=== PATIENT | female | born 1960 | race Caucasian/White ===

== ENCOUNTER → 2017-10-03 | Outpatient (CLI) | payer OTHER ==
[~2017-10-03] MED LIST: BUPR-79 PO; EFFSR150 PO; MULT-506 PO; ODVTWSS MS; SYN75 PO
--- NOTE | 2017-10-03 12:53 | DIAGNOSTIC IMAGING REPORT ---
MRI LUMBAR SPINE W/O CONTRAST CLINICAL HISTORY: Back pain with leg radiculopathy left greater than right TECHNIQUE: Sagittal and axial T1, T2 and STIR images were obtained. COMPARISON STUDY: No previous studies for comparison. OBSERVATIONS: The vertebral bodies and posterior elements appear intact. There is no abnormal bony signal present to suggest a marrow replacement process. There is an L1 focal fatty rests/meningioma. L1-2: No disc protrusions or extrusions. No evidence of spinal canal or neural foraminal compromise. L2-3: There is a circumferential disc bulge. There is minimal trigone narrowing of the spinal canal. There is no significant foraminal narrowing. L3-4: There is a mild circumferential disc bulge. There is no significant spinal or foraminal stenosis L4-5: There is a minor circumferential disc bulge. There is no significant spinal or foraminal stenosis L5-S1: No disc protrusions or extrusions. No evidence of spinal canal or neural foraminal compromise. There is mild facet joint arthropathy The conus medullaris and cauda equina appear normal. IMPRESSION: Mild multilevel spondylitic changes. No focal disc herniations. No evidence of high-grade spinal or foraminal stenosis. Electronically signed by: Handy Yeboah M.D. 10/03/2017 12:51 PM Dictated Date/Time: 10/03/2017 12:48 PM
== END | disposition home or self-care (01) ==
LOC: C.MRIBC 11:54
PROVIDERS: ATTEND Pain Medicine Interventional Pain Medicine
DX: M54.16 Radiculopathy, lumbar region (principal)